=== PATIENT | female | born 1995 | race Caucasian/White ===

== ENCOUNTER 2019-04-04 15:39 | Emergency (ER) | payer SELFPAY ==
[~2019-04-04] VITALS: Ht 152.4 cm; Wt 53.0 kg
[2019-04-04 15:43] VITALS: BP 130/87
--- NOTE | 2019-04-04 16:46 | NUR ---
NO ANSWER WHEN PT WAS CALLED FOR PIT. @ [phone]
--- NOTE | 2019-04-04 16:57 | NUR ---
NO ANSWER WHEN PT WAS CALLED FOR PIT. @ [phone]
--- NOTE | 2019-04-04 17:44 | NUR ---
NO ANSWER FROM TRIAGE
== END 2019-04-04 20:56 | disposition left against medical advice (07) ==
LOC: ED 20:55
DX: R11.2 Nausea with vomiting, unspecified (principal); R06.02 Shortness of breath; Z53.21 Procedure and treatment not carried out due to patient leaving prior to being seen by health care provider